=== PATIENT | male | born 1940 | race Caucasian/White ===

== ENCOUNTER → 2017-04-28 | Outpatient (CLI) | payer MEDICARE, BC ==
[~2017-04-28] MED LIST: ASPIRIN E.C. 8181 MG PO; CO Q-1050 MG PO; Co Q 10 PO; HYZAAR 50-12.1 UDTAB PO; LIPITOR 80MG80 MG PO; MASON NATURAL1200 MG PO; OMEGA-31 SGL PO; PRINIVIL20 MG PO; SANCTURA20 MG PO; SPIRIVA RE2.5 MCG/Ac IH; STOOL SOFTENER100 M2 PO; TENORMIN100 MG PO; VITAMIN B-1000 MCG/T PO; VYTORIN 10 MG-81 TAB PO; [UNRECOGNIZED DRUG - REMARK] PO
== END ==
LOC: COL.RAD 07:38
DX: D35.01 Benign neoplasm of right adrenal gland (principal); I71.4 Abdominal aortic aneurysm, without rupture; N28.1 Cyst of kidney, acquired; Z90.49 Acquired absence of other specified parts of digestive tract
CPT/HCPCS: Q9967

== ENCOUNTER → 2018-06-01 | Outpatient (CLI) | payer MEDICARE, BC ==
[~2018-06-01] MED LIST changes: +COZAAR 50MG50 MG/TAB PO; +COZAAR100 MG PO; +HCTZ 25MG TAB25 MG PO; +LOPRESSOR100 MG PO; +MAG-OX 400400 MG/TAB PO; +OMNICEF 300MG300 MG PO; +PREDNISONE20 MG PO; +PROAIR HFA0.09 MG/AC IH
== END ==
LOC: COL.RAD 08:03
DX: I71.4 Abdominal aortic aneurysm, without rupture (principal); Z87.891 Personal history of nicotine dependence

== ENCOUNTER → 2018-10-07 | Outpatient (CLI) | payer MEDICARE, BC | LOC: COL.RAD 07:02 | DX: E27.8 Other specified disorders of adrenal gland (principal); R04.2 Hemoptysis; R91.8 Other nonspecific abnormal finding of lung field; R59.0 Localized enlarged lymph nodes | CPT/HCPCS: Q9967 ==

== ENCOUNTER 2018-10-18 07:29 | Day surgery (SDC) | payer MEDICARE, BC ==
[~2018-10-18] VITALS: Ht 175.3 cm; Wt 79.5 kg
[~2018-10-18 07:29] MED LIST changes: +COENZYME Q-10100 M1 PO; -Co Q 10 PO; +LAXATIVE MAXIMU25 MG PO; -[UNRECOGNIZED DRUG - REMARK] PO
[2018-10-18] MEDS ORDERED: MUCINEX1200 MG PO (08:15)
[2018-10-18 08:24] VITALS: BP 127/50; PULSE 60; TEMP 97.1
[2018-10-18 10:05] VITALS: BP 108/50; PULSE 58; TEMP 97.8
--- NOTE | 2018-10-18 10:05 | NUR ---
TO RM 1 PER CART FROM ENDOSCOPY. ALERT ORIENTED X3, TALKING WITH STAFF AND . OCCASIONAL COUGH WITH PINK SPUTUM.
[2018-10-18 10:20] VITALS: BP 93/53; PULSE 56
--- NOTE | 2018-10-18 10:20 | NUR ---
RESPIRATIONS EVEN AND NONLABORED. RECEIVED PEPSI AND MCKINLEY. PUDDING. SITTING UP TALKING WITH AND WATCHING TV.
[2018-10-18 10:34] VITALS: BP 100/49; PULSE 55
--- NOTE | 2018-10-18 10:34 | NUR ---
CONTINUES TO HAVE OCCASIONAL COUGH. ATE 100% AND TOLERATED WELL.
[2018-10-18 10:50] VITALS: BP 108/48; PULSE 54
--- NOTE | 2018-10-18 10:50 | NUR ---
RECEIVED DISCHARGE INSTRUCTIONS AND VERBALIZED UNDERSTANDING. DISCONINTUED IV AND INT- CATHETER INTACT COVERED WITH COTTON BALL AND COBAN
--- NOTE | 2018-10-18 11:11 | NUR ---
DISCHARGED PER WC BY NURSING STAFF TO PRIVATE CAR IN CARE OF
== END 2018-10-18 11:12 | disposition home or self-care (01) ==
LOC: SDCO 07:29
DX: C34.11 Malignant neoplasm of upper lobe, right bronchus or lung (principal); I25.10 Atherosclerotic heart disease of native coronary artery without angina pectoris; I10 Essential (primary) hypertension; J44.9 Chronic obstructive pulmonary disease, unspecified; M19.90 Unspecified osteoarthritis, unspecified site; N17.9 Acute kidney failure, unspecified; D64.9 Anemia, unspecified; Z87.891 Personal history of nicotine dependence; Z90.49 Acquired absence of other specified parts of digestive tract; Z79.82 Long term (current) use of aspirin; Z85.46 Personal history of malignant neoplasm of prostate; Z90.79 Acquired absence of other genital organ(s)
CPT/HCPCS: J2704; J7120

== ENCOUNTER → 2018-10-20 | Outpatient (CLI) | payer MEDICARE, BC ==
[~2018-10-20] MED LIST changes: +MUCINEX1200 MG PO
== END ==
LOC: COL.RAD 07:57
DX: I67.82 Cerebral ischemia (principal); R91.8 Other nonspecific abnormal finding of lung field
CPT/HCPCS: J2704

== ENCOUNTER 2018-12-14 11:21 | Day surgery (SDC) | payer MEDICARE, BC ==
[~2018-12-14] VITALS: Ht 175.3 cm; Wt 76.3 kg
[2018-12-14 12:03] VITALS: BP 108/64; PULSE 72; TEMP 97.5
[2018-12-14] MEDS ORDERED: TOPROL XL100 MG PO (12:26)
[2018-12-14] MEDS ORDERED: COZAAR 50MG50 MG/TAB PO (12:26)
[2018-12-14] MEDS ORDERED: HCTZ 25MG TAB25 MG PO (12:27)
[2018-12-14] MEDS ORDERED: LIPITOR 80MG80 MG PO (12:27)
[2018-12-14] MEDS ORDERED: MAG-OX 400400 MG/TAB PO (12:28)
[2018-12-14] MEDS ORDERED: KLOR-CON M2020 MEQ PO (12:29)
[2018-12-14] MEDS ORDERED: VITAMIN B COMPL1 SGL PO (12:29)
[2018-12-14] MEDS ORDERED: ASPIRIN 81M81 MG/TA2 PO (12:29)
[2018-12-14] MEDS ORDERED: THE MEDICINE S200 M2 PO (12:30)
[2018-12-14] MEDS ORDERED: MUCINEX 60600 MG/TA1 PO (12:31)
[2018-12-14] MEDS ORDERED: STOOL SOFTENER100 M2 PO (12:31)
[2018-12-14] MEDS ORDERED: LAXATIVE MAXIMU25 MG PO (12:31)
[2018-12-14] MEDS ORDERED: IRON TABLETS325 MG PO (12:32)
[2018-12-14] MEDS ORDERED: STIOLTO RESPIMAT4 GM IH (12:32)
[2018-12-14] MEDS ORDERED: PRILOSEC 20MG20 MG PO (12:33)
[2018-12-14 15:28] VITALS: BP 100/57; PULSE 69
[2018-12-14] MEDS ORDERED: NORCO 325 MG-51 TAB PO (15:28)
--- NOTE | 2018-12-14 15:28 | NUR ---
The patient arrived back to [facility] from the operating room at this time. The patient appears drowsy but arouses easily to his name. The patient's post operative vital signs were started at this time. The patient's is at his bedside at this time. The patient has a gauze dressing to his left chest and a bandaid to his left neck that appear without redness or edema. The patient requests to try some pepsi at this time. Call light is within reach. Will continue to monitor the patient.
[2018-12-14 15:43] VITALS: BP 97/61; PULSE 68
--- NOTE | 2018-12-14 15:43 | NUR ---
The patient appears to be tolerating the pepsi well and denies wanting anything further to eat or drink at this time. The patient's remains at his bedside at this time. Will continue to monitor the patient.
[2018-12-14 15:58] VITALS: BP 111/55; PULSE 67
--- NOTE | 2018-12-14 15:58 | NUR ---
The patient agrees to try some chocolate ice cream at this time. The patient's went to grab a sandwhich at this time. Call light is within reach. Will continue to monitor the patient.
[2018-12-14 16:14] VITALS: BP 120/56; PULSE 71
--- NOTE | 2018-12-14 16:14 | NUR ---
Discharge instructions were reviewed with the patient and his at this time. They both verbalized understanding and have no questions for the nurse at this time. The patient's IV to his left forearm was removed and a pressure dressing was applied to the site. The nurse instructed the patient to get dressed and notify the staff when he is ready to be escorted out.
--- NOTE | 2018-12-14 16:20 | NUR ---
The patient was escorted out via wheelchair to a private vehicle by MAYTE Freeman. The patient's belongings and discharge paperwork were sent with him. The patient's is present to drive him home.
== END 2018-12-14 16:20 | disposition home or self-care (01) ==
LOC: SDCO 11:21
DX: C34.11 Malignant neoplasm of upper lobe, right bronchus or lung (principal); Z79.82 Long term (current) use of aspirin; J43.9 Emphysema, unspecified; Z85.46 Personal history of malignant neoplasm of prostate; I25.10 Atherosclerotic heart disease of native coronary artery without angina pectoris; E78.5 Hyperlipidemia, unspecified; M19.90 Unspecified osteoarthritis, unspecified site; I10 Essential (primary) hypertension; I73.00 Raynaud's syndrome without gangrene; Z90.49 Acquired absence of other specified parts of digestive tract; Z98.61 Coronary angioplasty status; Z87.891 Personal history of nicotine dependence; Z82.3 Family history of stroke
CPT/HCPCS: C1788; J0690; J1644; J2405; J2704; J3010; J7030

== ENCOUNTER → 2019-06-20 | Outpatient (CLI) | payer MEDICARE, BC ==
[~2019-06-20] MED LIST changes: +ASPIRIN 81M81 MG/TA2 PO; +IRON TABLETS325 MG PO; +KLOR-CON M2020 MEQ PO; +MUCINEX 60600 MG/TA1 PO; +NORCO 325 MG-51 TAB PO; +PRILOSEC 20MG20 MG PO; +STIOLTO RESPIMAT4 GM IH; +THE MEDICINE S200 M2 PO; +TOPROL XL100 MG PO; +VITAMIN B COMPL1 SGL PO
== END ==
LOC: COL.RAD 09:30
DX: I71.4 Abdominal aortic aneurysm, without rupture (principal)

== ENCOUNTER → 2019-09-12 | Outpatient (CLI) | payer MEDICARE, BC | LOC: COL.VAS 09:30 | DX: J44.9 Chronic obstructive pulmonary disease, unspecified (principal); I35.1 Nonrheumatic aortic (valve) insufficiency ==

== ENCOUNTER → 2019-09-22 | Outpatient (CLI) | payer MEDICARE, BC | LOC: COL.VAS 08:16 | DX: R22.43 Localized swelling, mass and lump, lower limb, bilateral (principal); C34.11 Malignant neoplasm of upper lobe, right bronchus or lung; M79.89 Other specified soft tissue disorders ==

== ENCOUNTER → 2021-12-26 | Outpatient (CLI) | payer MEDICARE, BC | LOC: COL.VAS 13:27 | DX: I08.3 Combined rheumatic disorders of mitral, aortic and tricuspid valves (principal) ==

== ENCOUNTER → 2022-03-12 | Outpatient (CLI) | payer MEDICARE, BC | LOC: COL.VAS 12:15 | DX: I70.213 Atherosclerosis of native arteries of extremities with intermittent claudication, bilateral legs (principal) ==

== ENCOUNTER → 2022-03-28 | Day surgery (SDC) | payer MEDICARE, BC ==
[~2022-03-28] VITALS: Ht 175.3 cm; Wt 87.3 kg
[~2022-03-28] MED LIST changes: +CLARITIN 1010 MG/TAB PO; +NATURAL POTASS595 MG PO; +NATURAL SENNA8.6 MG PO; +TOPROL XL 25MG25 MG PO; +[UNRECOGNIZED DRUG - OTHER]
[2022-03-28 06:21] VITALS: BP 147/57; PULSE 65; TEMP 98.1
[2022-03-28 08:15] VITALS: BP 127/47; PULSE 64; TEMP 97.6
[2022-03-28 08:30] VITALS: BP 125/54; PULSE 69
[2022-03-28 08:45] VITALS: BP 124/49; PULSE 62
--- NOTE | 2022-03-28 09:03 | NUR ---
0813 Pt returns from Endo procedure to [facility] via cart and this RN assist. Pt's present in room. Pt alert and oriented and wanting something to drink as soon as possible. Call light within reach. Monitors on and alarms set. Pt denies pain or nausea. Pepsi brought for patient. 0820 Pt taking drink well. Pt has no complaints and is wanting to discharge. 0855 Discharge instructions given to pt and pt's . All questions answered to their satisfaction. 0903 Pt transferred out of hospital via wheelchair and this RN assist to private vehicle driven by pt's .
[2022-03-28 13:51] VITALS: BP 98/89; PULSE 65
== END ==
LOC: SDCO 05:45
DX: J18.8 Other pneumonia, unspecified organism (principal); Z85.118 Personal history of other malignant neoplasm of bronchus and lung; Z87.891 Personal history of nicotine dependence; J44.9 Chronic obstructive pulmonary disease, unspecified; Z99.81 Dependence on supplemental oxygen
CPT/HCPCS: J0330; J0461; J2370; J2704; J7120

== ENCOUNTER 2024-01-12 18:41 | Inpatient (IN) | payer MEDICARE, BC ==
[~2024-01-12] VITALS: Ht 175.3 cm; Wt 87.3 kg
[~2024-01-12 18:41] MED LIST changes: +BREZTRI AEROS10.7 GM IH; -TOPROL XL 25MG25 MG PO; +TOPROL XL 50MG50 MG PO; -[UNRECOGNIZED DRUG - OTHER]
[2024-01-12] MEDS ORDERED: Ondansetron 4 MG/2 ML VIAL IV ONE (19:00)
[2024-01-12] MEDS ORDERED: NS 1,000 ML IV SCH ×2 (19:08→22:15)
[2024-01-12] MEDS ORDERED: Morphine 4 MG/ML VIAL IV ONE (19:15)
[2024-01-12] MEDS ORDERED: Iohexol 300 - 100 ML VIAL IV ONE (19:20)
[2024-01-12] MEDS ORDERED: NS 50 ML IV SCH (19:20)
[2024-01-12] MEDS ORDERED: HYDROmorphone 0.5 MG/0.5 ML SYRINGE IV PRN ×2 (20:00→21:45)
[2024-01-12] MEDS ORDERED: LR 1,000 ML IV ONE (20:15)
[2024-01-12] MEDS ORDERED: Albuterol/Ipratropium 3 MG-0.5 MG/3 ML Neb Soln IH PRN (21:30)
[2024-01-12] MEDS ORDERED: Ondansetron 4 MG/2 ML VIAL IV PRN (21:30)
[2024-01-12] MEDS ORDERED: hydrALAZINE 20 MG/ML 1 ML VIAL IV PRN (21:45)
--- NOTE | 2024-01-12 21:46 | NUR ---
TELEPHONE REPORT RECIEVED FROM CASSIA HU IN THE ER AT THIS TIME.
[2024-01-12] MEDS ORDERED: Meropenem 500 MG in Water For Injection,Sterile 10 ML IV ONE (22:00)
--- NOTE | 2024-01-12 22:05 | NUR ---
MALE PATIENT ARRIVED TO ROOM #310 VIA STRETCHER FROM ER. PATIENT TRANSFERED OVER TO BED BY MOVING HIMSELF ONTO ROOM BED. LR INFUSING INTO LEFT AC WITH NO COMPLICATIONS NOTED. INTIAL INTERVIEW AND ASSESSMENT COMPLETED AT THIS TIME. PATIENT TOLERATED WELL. PATIENT ON 2 LITERS OF OXYGEN VIA NC. O2 SAT 97% ON OXYGEN. VITAL SIGNS TAKEN AND STABLE. PATIENT STATES PAIN LEVEL IS 9 ON SCALE OF 0 TO 10. IV DILAUDID GIVEN PER MD ORDER. MERREM ADMINISTERED. ROBLES NON-SKID SOCKS PLACED ON. URINAL GIVEN. PATIENT DENIES ANY NEEDS AT THIS TIME. BED IN LOW POSITION WITH WHEELS LOCKED WITH RAILS UP X3 AND CALL LIGHT WITHIN REACH.
[2024-01-12 22:15] VITALS: BP 162/78; PULSE 80; TEMP 98.8
[2024-01-12] MEDS ORDERED: Meropenem 1 G in Water For Injection,Sterile 20 ML IV SCH (22:30)
[2024-01-13] VITALS (14 sets, daily range): BP systolic 127–183; BP diastolic 54–78; PULSE 70–86; TEMP 97.4–100.2
[2024-01-13] MEDS ORDERED: Meropenem 500 MG in Water For Injection,Sterile 10 ML IV SCH (06:00)
[2024-01-13] MEDS ORDERED: Budesonide Neb Susp 0.5 MG/2 ML AMP IH SCH (07:00)
--- NOTE | 2024-01-13 08:02 | NUR ---
PT RESTING IN BED RATING PAIN 12/10 IN LOWER ABDOMEN. PAIN MEDICATION PROVIDED PER EMAR. PT EXPRESSING CONSERN FOR URINE RETENTION, URINAL PROVIDED, WILL BLADDER SCAN. PT STATES HE WEARS O2 DURING THE NIGHT ONLY, PT PUT TO RA, O2 SAT 95%. PT A/O X4 AND REMAINS NPO WITH SIPS AND CHIPS FOR FEAR OF INCREASED PAIN. COCCYX RED BUT BLANCHABLE. WILL CONTINUE TO MONITOR.
--- NOTE | 2024-01-13 08:40 | NUR ---
NILA DALE CALLED AND VERBAL ORDERS TO PLACE SEPULVEDA CATHETER. THIS NURSE AND PROPERTY MANAGEMENT INTERN AT BEDSIDE. UIRNE FLOWING FORM CATHETER BUT BALLOON UNABLE TO INFLATE WITHOUT CAUSING PT PAIN. PLACEMENT UNSUCCESSFUL BUT BLADDER EMPTIED AND PT STATES PAIN RELIEF. NILA DALE NOTIFIED AND VERBAL ORDERS TO BLADDER SCAN PRN FOR URINE RETENTION. WILL CONTINUE TO MONITOR.
[2024-01-13] MEDS ORDERED: amLODIPine 5 MG TAB PO SCH (09:00)
[2024-01-13] MEDS ORDERED: Heparin 5,000 UNITS/ML 1 ML VIAL SQ SCH (09:00)
[2024-01-13] MEDS ORDERED: Losartan 50 MG TAB PO SCH (09:00)
[2024-01-13] MEDS ORDERED: Budesonide/Glycopyrrolate/Formoterol **** subs to Budesonide + Umeclid/Vilant IH SCH (09:00)
[2024-01-13] MEDS ORDERED: Olmesartan 20 MG **** subs to Losartan 50 MG PO SCH (09:00)
[2024-01-13] MEDS ORDERED: Umeclidinium/Vilanterol 62.5-25 MCG INHALATION/INHALER IH SCH (09:00)
[2024-01-13] MEDS ORDERED: Pantoprazole 40 MG in NS 10 ML IV SCH (09:00)
[2024-01-13] MEDS ORDERED: ZYRTEC 10MG10 MG PO (10:40)
[2024-01-13] MEDS ORDERED: PROAIR HFA0.09 MG/AC IH (10:41)
[2024-01-13] MEDS ORDERED: NORVASC2.5 MG PO (10:41)
[2024-01-13] MEDS ORDERED: BENICAR HCT 12.1 TAB PO (10:50)
[2024-01-13] MEDS ORDERED: oxyCODONE 5 MG TAB PO PRN (11:15)
--- NOTE | 2024-01-13 15:38 | NUR ---
second worker met with patient to discuss discharge planning. Patient currently lives in [place] with his Luz, P# [phone]. PCP is Dr. Erwin, pharmacy is [facility]. Insurance is Medicare A and B, BCBS. No issues affording medications. DPOA-HC is Luz sunil Orr. DME is oxygen (concentrator and portable concentrator) through [facility]. Patient reports to be independent with ADLS. Patient reports he is able to transport himself to and from appointments. Patient would like to return home at time of discharge. SW discussed home health services, patient does not currently have these services but if it is recommended by the physician and physical therapists he would be open to those services. Discharge plan: Home
[2024-01-13] MEDS ORDERED: Acetaminophen 325 MG TAB PO PRN (16:15)
[2024-01-13] MEDS ORDERED: Lidocaine 2% (20 MG/ML) 20 ML UROJET UR ONE (16:30)
--- NOTE | 2024-01-13 16:30 | NUR ---
PT REPORT DICOMFORT IN BLADDER AND INABILITY TO URINATE. BLADDER SCAN INCONCLUSIVE AND TEMP 100.2. NILA DALE CALLED AND ORDERS PROVIDED. CONSULT CALLED TO DR. CORTEZ. DR AT BEDSIDE AND 14 SAMI SEPULVEDA CATHETER PLACED. PT REPORT PAIN RELIEF, PRN PAIN MEDICATION PROVIDED, AND PT TOLERATING ICE CHIPS. NO NEEDS AT THIS TIME, WILL CONTINUE TO MONITOR.
--- NOTE | 2024-01-13 19:16 | NUR ---
Bedside report received from MAYTE Dennison. Pt resting in bed watching TV with no complaints. Call light within reach.
--- NOTE | 2024-01-13 20:31 | NUR ---
Shift assessment completed. Pt A&O x4. VSS. Pt has complaints stating, "I feel I need to urinate". This nurse provided education about richards catheter that is in place and assured patient that yellow urine was draining into catheter bag. Pt denies pain at this time rating, 0/10. NS infusing into LAC with no complications. Pt tolerating small sips of water with no complaints. Pt has no request at this time. Call light within reach.
--- NOTE | 2024-01-13 21:43 | NUR ---
Pt has complaints of pain in ABD rating 9/10. PRN roxicodone administered as ordered. Pt has no other request at this time. Call light within reach.
[2024-01-14] VITALS (11 sets, daily range): BP systolic 116–152; BP diastolic 62–81; PULSE 71–88; TEMP 97.6–99.9
--- NOTE | 2024-01-14 07:00 | NUR ---
PATIENT AWAKE AND ALERT,SITTING UP IN BED. PATIENT REQUESTING THIS RN ASK THE MD ON ROUNDS IF HE CAN HAVE A GI CONSULT. PATIENT STATED HIS LAST BM WAS THURSDAY, AND HIS NORMAL IS TO GO EVERY 3-4 DAYS., PER PATIENT AT HOME HE USUALLY TAKES 2 LAXATIVES AND 3 STOOL SOFTENERS THE DAY HE "FEELS READY" TO HAVE A BM. PATIENT ABD NOTED TO BE VERY DISTENTED, SOFT, NOT FIRM. PATIENT WITH COMPLAINTS OF TOELRABLE PAIN, THAT SHOOTS UP THE SIDES AND ACROSS THE TOP OF HIS ABDOMEN. THIS RN WILL PASS ALONG TO MD IN ROUNDS. PATIENT CALL LIGHT WITHIN REACH.
--- NOTE | 2024-01-14 10:20 | NUR ---
MD MADE AWARE OF PATIENT CRITICAL WBC OF >22
[2024-01-14] MEDS ORDERED: Polyethylene Glycol 3350 17 GM PDS PO SCH (12:17)
[2024-01-14] MEDS ORDERED: Docusate Sodium 100 MG CAP PO PRN (12:30)
--- NOTE | 2024-01-14 14:18 | NUR ---
D: Hydrogen Operator stopped by room on rounds. A: Pt was resting and content with family in the room. Pt has no needs right now. Pt and family appreciated the visit. P: Hydrogen Operator informed pt that if he needed anything from the street light repairer helper area to let his nurse know. Hydrogen Operator will follow up as needed.
--- NOTE | 2024-01-14 21:00 | NUR ---
UPON SHIFT ASSESSMENT, ROBLES WAS UP IN BED AND C/O OF 9/10 ABDOMIAL PAIN. BOWEL SOUNDS HYPOACTIVE IN ALL QUADRANTS, ABDOMEN DISTENDED BUT SOFT. ROXICODONE 5MG ADMINISTERED. VS ARE WNL. WBC ELEVATED 22.16-MEREPEM DUE AT 0000 AM. WILL MONITOR TEMP.
--- NOTE | 2024-01-14 22:12 | NUR ---
ASSISSTED PATIENT TO AMBULATE FAUST IN EFFORT TO INCREASE PERISTALSIS TO ADDRESS CONSTIPATION. PATIENT EXHIBITED ANTONIO, HOWEVER, STATED HE "FELT BETTER THAN THIS MORNING." LUNG SOUNDS REMAIN DIMINSHED. VS ARE WNL.
[2024-01-15] VITALS (12 sets, daily range): BP systolic 111–168; BP diastolic 58–72; PULSE 74–89; TEMP 97.5–100.6
--- NOTE | 2024-01-15 05:39 | NUR ---
Patient c/o 10/10 abdominal pain. bowel sounds present, abdomen distended and semi-firm/soft. 0.5mg Dilaudid given.
[2024-01-15] MEDS ORDERED: Magnesium Oxide 400 MG TAB PO SCH (09:00)
[2024-01-15 11:17] LABS: HEMOGLOBIN 10.2 g/dl (13.5-18.0); MEAN CELL VOLUME 86 fl (80.0-100.0); MEAN CORPUSCULAR HEMOGLOBIN 29 pg (27-31); MEAN CORPUSCULAR HGB CONC 34 g/dl (33.0-37.0); MEAN PLATELET VOLUME 8.4 fl (7.4-10.4); PLATELET COUNT 242 K/mm3 (130-400); RED BLOOD COUNT 3.51 M/mm3 (4.20-5.60); REDCELL DISTRIBUTION WIDTH-CV 15.4 % (11.5-14.5)
[2024-01-15 11:25] LABS: HEMATOCRIT 30.1 % (42.0-52.0)
[2024-01-15 12:04] LABS: BAND 2 % (0-10); LYMPHOCYTE 1 % (20.0-51.0); NEUTROPHILS 92 % (42.0-75.2)
[2024-01-15 12:10] LABS: PLATELET ESTIMATE NORMAL (NORMAL)
--- NOTE | 2024-01-15 13:42 | NUR ---
AFTER SPEAKING WITH LAB MANY TIMES, AND BEING TOLD MANY TIMES THAT THEY HAVE NO ORDERS FOR MY PATIENT, I WAS TOLD THEY FOUND THE RESULT FOR THIS PATIENTS CREATINIE, HOWEVER IT WAS THE RESULT FROM YESTERDAY. THEN I WAS TOLD THAT IS WAS RUNNING. EVEN THOUGH THE ORDER WAS SUBMITTED AT THIS 0500. RESULT CALLED AFTER 1300 TO MATERIAL LISTER. WINDOWS SERVER ENGINEER AWARE OF SITUATIONS
[2024-01-15] MEDS ORDERED: Iohexol 300 - 100 ML VIAL IV ONE (15:49)
[2024-01-15] MEDS ORDERED: NS 100 ML IV SCH (15:50)
--- NOTE | 2024-01-15 20:30 | NUR ---
PT A&O X4 LAYING IN BED. PT STATING ABD PAIN IS 10/10 & THAT HIS ABD FEELS TIGHT, GAVE PRN OXYCODONE PER PT REQUEST. PT DENIES PASSING GAS & STATES LAST BM WAS THURSDAY. EDUCATED PT ON USE OF OPIOIDS SLOWING GI. SEPULVEDA TO DD WITH YELLOW OUTPUT. & INT TO RT FOREARM PATENT. PT DENYING OTHER NEEDS. CALL LIGHTS IN REACH
[2024-01-16] VITALS (12 sets, daily range): BP systolic 99–158; BP diastolic 55–67; PULSE 70–95; TEMP 97.7–99.5
--- NOTE | 2024-01-16 01:15 | NUR ---
GAVE PRN ZOFRAN & OXYCODONE PER OCT FOR ABD PAIN 03/12.
[2024-01-16 06:43] LABS: HEMATOCRIT 27.6 % (42.0-52.0); HEMOGLOBIN 9.5 g/dl (13.5-18.0); MEAN CELL VOLUME 85 fl (80.0-100.0); MEAN CORPUSCULAR HEMOGLOBIN 29 pg (27-31); MEAN CORPUSCULAR HGB CONC 34 g/dl (33.0-37.0); MEAN PLATELET VOLUME 8.4 fl (7.4-10.4); PLATELET COUNT 230 K/mm3 (130-400); RED BLOOD COUNT 3.25 M/mm3 (4.20-5.60); REDCELL DISTRIBUTION WIDTH-CV 14.7 % (11.5-14.5)
[2024-01-16 07:35] LABS: BAND 3 % (0-10); EOSINOPHIL 1 % (0-4); LYMPHOCYTE 2 % (20.0-51.0); METAMYELOCYTE 0 % (0-0); NEUTROPHILS 86 % (42.0-75.2); PLATELET ESTIMATE NORMAL (NORMAL)
--- NOTE | 2024-01-16 09:00 | NUR ---
PATIENT AWAKE AND ALERT, SITTIGN UP IN THE RECLINER. PATIENT DENIES ANY NEEDS OR COMPLAINTS AT THIS TIME. CALL LIGHT WTIHIN REACH.
[2024-01-16 09:32] LABS: ALBUMIN 2.2 g/dL (3.4-4.8); BILIRUBIN,TOTAL 0.8 mg/dL (0.2-1.2); CALCIUM 8.3 mg/dL (8.4-10.2); CREATININE, serum 0.95 mg/dL (0.72-1.25); POTASSIUM 3.6 mEq/L (3.5-4.5); TOTAL PROTEIN 5.2 g/dl (6.2-8.1)
--- NOTE | 2024-01-16 14:00 | NUR ---
PATIENT RELUCTANT TO ANY SOLID FOOD OR SNACKS. PER PATIENT FAMILY HE CAN BE "PICKY." PATIENT EDUCATED ON NEED FOR MORE INTAKE AT THIS TIME TO ASSIST HIM TO HAVE A BM, HE HAS HAD NO SOLID INTAKE IN A FEW DAYS. PATEINT DOES NOT SEEM TO ACEPT TEACHING. PATIENT SHAYNE LIGHT WTIHIN REACH.
[2024-01-16] MEDS ORDERED: Lactulose Oral Soln 10 GM/15 ML CUP PO ONE (15:15)
--- NOTE | 2024-01-16 18:00 | NUR ---
DONATO MAYES AND ALERT SITTING UP IN BED. CALL LIGHT WITHIN REACH. PATAIENT DENIES ANY NEEDS AT THIS TIME.
[2024-01-17] VITALS (11 sets, daily range): BP systolic 101–127; BP diastolic 56–70; PULSE 72–94; TEMP 97.6–98.6
--- NOTE | 2024-01-17 05:15 | NUR ---
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 PT COMPLAINED OF A HEADACHE AND STOMACH PAIN. PT GIVEN TYLENOL AND ROXICODONE FOR PAIN. PT FELT THE PAIN MEDICATION WAS EFFECTIVE FOR A TIME. PT DENIED CHEST PAIN, PALPITATIONS, SOB, N,V,D OR DIZZINESS. PT HAD TWO LARGE AND ONE SMALL LOOSE BOWEL MOVEMENTS. FALL PRECAUTIONS IN PLACE. BED ALARM ON. CALL LIGHT WITHIN REACH.
[2024-01-17 06:18] LABS: ALBUMIN 2.5 g/dL (3.4-4.8); BILIRUBIN,TOTAL 0.8 mg/dL (0.2-1.2); CALCIUM 9.1 mg/dL (8.4-10.2); CREATININE, serum 1.19 mg/dL (0.72-1.25); POTASSIUM 3.3 mEq/L (3.5-4.5); TOTAL PROTEIN 6.4 g/dl (6.2-8.1)
[2024-01-17 06:28] LABS: HEMOGLOBIN 10.6 g/dl (13.5-18.0); MEAN CELL VOLUME 85 fl (80.0-100.0); MEAN CORPUSCULAR HEMOGLOBIN 29 pg (27-31); MEAN CORPUSCULAR HGB CONC 34 g/dl (33.0-37.0); MEAN PLATELET VOLUME 8.6 fl (7.4-10.4); PLATELET COUNT 326 K/mm3 (130-400); RED BLOOD COUNT 3.69 M/mm3 (4.20-5.60); REDCELL DISTRIBUTION WIDTH-CV 14.9 % (11.5-14.5)
[2024-01-17 07:24] LABS: HEMATOCRIT 31.3 % (42.0-52.0)
[2024-01-17 07:32] LABS: BAND 7 % (0-10); LYMPHOCYTE 3 % (20.0-51.0); NEUTROPHILS 81 % (42.0-75.2); OVALOCYTES 1+; PLATELET ESTIMATE NORMAL (NORMAL)
--- NOTE | 2024-01-17 10:00 | NUR ---
PATIENT IS AWARE HIS SACRUM IS REDENED, BARRIER CREAM IN USE, PATIENT EDUCATED ON THE IMPORTANCE OF CHANGING POSITON TO PREVENT WOUNDS. PATIENT IS INDEPENDENT AND WILL RETURN HOME. PATIENT SEEMS TO BE UNINTERESTED IN EDUCATION. PATIENT STILL WITH POOR INTAKE. MD AWARE
[2024-01-17] MEDS ORDERED: LR 1,000 ML IV SCH (13:30)
[2024-01-17] MEDS ORDERED: Potassium Bicarbonate/Citrate 20 MEQ Effervescent TAB PO SCH (13:30)
[2024-01-17] MEDS ORDERED: *Potassium Replacement Protocol MC SCH (13:30)
--- NOTE | 2024-01-17 14:00 | NUR ---
PATIENT DID NOT WANT TO BE SHOWERED AT THIS TIME. PATIENT ALSO SAID HE IS NOT UP TO MOVING TO THE RECLINER TODAY. PATIENT AMBUATED INTO HALLWAY AND BACK TO BED WITH A WALKER, WITHOUT DIFFULCTY TODAY. RN PERFORMED CATH CARE. PATIENT DENIES ANY NEEDS AT THIS TIME. CALL [facility] WTIN REACH
--- NOTE | 2024-01-17 16:45 | NUR ---
DONATO STATED HIS ABDMEN HURTS "WORSE NOW" THAT THIS RN STARTED IV FLUIDS ON HIM. MD NOTIFIED AND GAVE THIS RN A VORB TO DC FLUID.
--- NOTE | 2024-01-17 19:22 | NUR ---
PATIENT SITTING UP IN BED WITH TV ON WITH NO FAMILY PRESENT WITH NO ACUTE DISTRESS NOTED. PATIENT ON 2 LITERS OF OXYGEN VIA NC. INT TO RIGHT FOREARM INTACT WITH NO COMPLICATIONS NOTED. PATIENT C/O PAIN AND NAUSEA. PO OXYCODONE AND IV ZOFRAN GIVEN PER PATIENT REQUEST. PATIENT STATES PAIN LEVLE IS 10 ON SCALE OF 0 TO 10. ASSESSMENT COMPLETED. PATIENT TOLERATED WELL. PATIENT DENIES ANY OTHER NEEDS AT THIS TIME. BED IN LOW POSITION WITH WHEELS LOCKED WITH RAILS UP X3 AND CALL LIGHT WITHIN REACH. BED ALARM ON.
--- NOTE | 2024-01-17 19:29 | NUR ---
PATIENT RESTING IN BED WITH TV ON WITH NO FAMILY PRESENT WITH NO ACUTE DISTRESS NOTED. PATIENT ON 2 LITERS OF OXYGEN VIA NC. INT TO RIGHT FOREARM INTACT WITH NO COMPLICATIONS NOTED. BEDSIDE SHIFT REPORT COMPLETED [facility]. PATIENT DENIES ANY NEEDS. BED IN LOW POSITION WITH WHEELS LOCKED WITH RAILS UP X3 AND CALL LIGHT WITHIN REACH. BED ALARM ON.
[2024-01-17] MEDS ORDERED: Meropenem 500 MG in Water For Injection,Sterile 10 ML IV SCH (20:30)
--- NOTE | 2024-01-17 22:10 | NUR ---
PATIENT RESTING IN BED WITH TV ON WITH NO FAMILY PRESENT WITH NO ACUTE DISTRESS NOTED. PATIENT ON 2 LITERS OF OXYGEN VIA NC. INT TO RIGHT FOREARM INTACT WITH NO COMPLICATIONS NOTED. MEDICATION ADMINISTRATION COMPLETED AT THIS TIME. PATIENT TOLERATED WELL. PATIENT REQUESTED ICE AND WATER. BOTH GIVEN IN PITCHER. PATIENT DENIES ANY OTHER NEEDS. SEPULVEDA CATH INTACT, PATENT, AND DRAINING CLEAR YELLOW URINE. BED IN LOW POSITION WITH WHEELS LOCKED WITH RAILS UP X3 AND CALL LIGHT WITHIN REACH. BED ALARM ON.
[2024-01-18] VITALS (12 sets, daily range): BP systolic 101–133; BP diastolic 61–71; PULSE 62–84; TEMP 97.6–98.7
[2024-01-18 06:25] LABS: MEAN CELL VOLUME 84 fl (80.0-100.0); MEAN CORPUSCULAR HGB CONC 34 g/dl (33.0-37.0); MEAN PLATELET VOLUME 8.7 fl (7.4-10.4); PLATELET COUNT 271 K/mm3 (130-400)
[2024-01-18 06:31] LABS: HEMATOCRIT 28.7 % (42.0-52.0); HEMOGLOBIN 9.7 g/dl (13.5-18.0); MEAN CORPUSCULAR HEMOGLOBIN 29 pg (27-31)
[2024-01-18 06:38] LABS: ALBUMIN 2.1 g/dL (3.4-4.8); BILIRUBIN,TOTAL 0.7 mg/dL (0.2-1.2); CALCIUM 8.8 mg/dL (8.4-10.2); CREATININE, serum 1.01 mg/dL (0.72-1.25); POTASSIUM 3.3 mEq/L (3.5-4.5); TOTAL PROTEIN 5.7 g/dl (6.2-8.1)
[2024-01-18 07:07] LABS: BAND 2 % (0-10); LYMPHOCYTE 2 % (20.0-51.0); NEUTROPHILS 84 % (42.0-75.2); PLATELET ESTIMATE NORMAL (NORMAL)
[2024-01-18 07:08] LABS: ANISOCYTOSIS 1+; BURR CELLS 1+; OVALOCYTES 1+
[2024-01-18] MEDS ORDERED: Potassium Bicarbonate/Citrate 20 MEQ Effervescent TAB PO SCH (07:15)
--- NOTE | 2024-01-18 08:00 | NUR ---
PATIENT RESTING IN BED. ALERT AND ORIENTED. SHIFT ASSESSMENT COMPLETE. PATIENT HAS WHEEZES IN BILAT UPPER LOBES ON EXPIRATION. ABDOMEN IS DISTENDED AND FIRM TO TOUCH. PATIENT RATING PAIN 4/10 AT THIS TIME. BOWEL SOUNDS HYPOACTIVE IN ALL QUADRANTS. PATIENT STATES HE IS PASSING MINIMAL FLATUS. DENIES FURTHER NEEDS OR CONCERNS AT THIS TIME. CALL LIGHT WITHIN REACH.
--- NOTE | 2024-01-18 09:22 | NUR ---
Kettle Loader met with patient to follow up on Home Health services. SW provided information about what services can be provided and what is covered by Medicare. Patient is not ready to make a decision at this time, however was willing to accept the Medicare.gov list of HH options for [place].
--- NOTE | 2024-01-18 19:00 | NUR ---
PATIENT RESTING IN BED WATCHING TV WITH NO FAMILY PRESENT WITH NO ACUTE DISTRESS NTOED. PATIENT ON 2 LITERS OF OXYGEN VIA NC. INT TO RIGHT FOREARM INTACT WITH NO COMPLICATIONS NOTED. SEPULVEDA CATH INTACT, PATENT, AND DRAINING CLEAR YELLOW URINE. BEDSIDE SHIFT REPORT COMPLETED WITH LESLIE AT THIS TIME. PATIENT DENIES ANY NEEDS. BED IN LOW POSITION WITH RAILS UP X3 AND CALL LIGHT WITHIN REACH. BED ALARM ON.
--- NOTE | 2024-01-18 20:35 | NUR ---
PATIENT RESTING IN BED WATCHING TV WITH NO FAMILY PRESENT WITH NO ACUTE DISTRESS NOTED. PATIENT ON 2 LITERS OF OXYGEN VIA NC. INT TO RIGHT FOREARM INTACT WITH NO COMPLICATIONS NOTED. SEPULVEDA CATH INTACT, PATENT, AND DRAINING CLEAR YELLOW URINE. ASSESSMENT AND MEDICATION ADMINISTRATION COMPLETED. PATIENT TOLERATED WELL. PATIENT REQUESTED ICE CHIPS AND WAS GIVEN. PATIENT DENIES ANY OTHER NEEDS. BED IN LOW POSITION WITH WHEELS LOCKED WITH RAILS UP X3 AND CALL LIGHT WITHIN REACH. BED ALARM ON.
[2024-01-19] VITALS (12 sets, daily range): BP systolic 107–156; BP diastolic 61–73; PULSE 72–93; TEMP 97.5–100.3
[2024-01-19] MEDS ORDERED: Potassium Bicarbonate/Citrate 20 MEQ Effervescent TAB PO ONE (07:45)
--- NOTE | 2024-01-19 09:00 | NUR ---
PATIENT RESTING IN BED WATCHING TV. ALERT AND ORIENTED. SHIFT ASSESSMENT COMPLETE. ABD DISTENDED AND FIRM. HYPOACTIVE BS X4. PATIENT DENIES PAIN, BUT STATES HE FEELS A LOT OF PRESSURE IN HIS ABD. REMAINS NPO, ONLY TAKING SIPS OF WATER AND EATING ICE CHIPS.
[2024-01-19 09:02] LABS: MEAN CELL VOLUME 86 fl (80.0-100.0); MEAN CORPUSCULAR HGB CONC 33 g/dl (33.0-37.0); MEAN PLATELET VOLUME 8.9 fl (7.4-10.4); PLATELET COUNT 320 K/mm3 (130-400); RED BLOOD COUNT 3.43 M/mm3 (4.20-5.60); REDCELL DISTRIBUTION WIDTH-CV 15.3 % (11.5-14.5)
[2024-01-19 09:04] LABS: HEMATOCRIT 29.4 % (42.0-52.0); HEMOGLOBIN 9.6 g/dl (13.5-18.0); MEAN CORPUSCULAR HEMOGLOBIN 28 pg (27-31)
[2024-01-19 09:16] LABS: BILIRUBIN,TOTAL 0.6 mg/dL (0.2-1.2); CALCIUM 9.5 mg/dL (8.4-10.2); CREATININE, serum 0.92 mg/dL (0.72-1.25); POTASSIUM 3.9 mEq/L (3.5-4.5); TOTAL PROTEIN 5.9 g/dl (6.2-8.1)
[2024-01-19 09:40] LABS: BAND 23 % (0-10); LYMPHOCYTE 6 % (20.0-51.0); METAMYELOCYTE 1 % (0-0); NEUTROPHILS 61 % (42.0-75.2); PLATELET ESTIMATE NORMAL (NORMAL)
--- NOTE | 2024-01-19 09:46 | NUR ---
LAB CALLED FOR CRITICAL LAB VALUE. BG 66 FROM 0500 LABS. THIS NURSE RECHECKED BG LEVELS. NOW AT 80. CHITO JORDAN NOTIFIED. NO NEW ORDERS AT THIS TIME.
[2024-01-19] MEDS ORDERED: Dextrose 50% Water 25 GM/50 ML SYRINGE IV PRN (10:30)
[2024-01-19] MEDS ORDERED: Dextrose (Glucose) 15 GM (4 x 3.75 GM) Chewable TABLET PACK PO PRN (10:30)
[2024-01-19] MEDS ORDERED: Glucagon 1 MG VIAL IM PRN (10:30)
[2024-01-19 10:53] LABS: MAGNESIUM 2.1 mg/dL (1.6-2.6); PHOSPHOROUS 2.1 mg/dL (2.3-4.7)
--- NOTE | 2024-01-19 12:36 | NUR ---
Interior Wirer attended clinical rounds with the team and patient is having a NG tube placed and started on TPN. SW contacted patient's , Luz to check in and discuss home health services. SW advised she left a list in patient's room for review.
--- NOTE | 2024-01-19 14:36 | NUR ---
PATIENT NOT GETTING PICC PLACED ANYMORE D/T PATIENT TELLING RN HE HAS A PORT TO LEFT CHEST. CHITO JORDAN NOTIFIED, VICTOR MANUEL APPROVED USING PORT FOR TPN.
--- NOTE | 2024-01-19 14:42 | NUR ---
Order received for PICC line placement. Spoke with the patient prior to insertion attempt and he reported he had a left chest port that he receives cancer treatment through. Spoke with the nurse and she was unaware of the port. She called Dr. Saha and let him know the patient had the port and he gave orders to use the port for the patients TPN rather than placing the PICC line. PICC line cancelled.
--- NOTE | 2024-01-19 15:21 | NUR ---
PT LT CHEST PAC ACCESSED BY SALON SALES CONSULTANT SO THAT PATIENT CAN START TPN THIS AFTERNOON. STERILE PROCEDUCE FOLLOWED. PT TOLERATED ACCESS WELL.
[2024-01-19] MEDS ORDERED: Insulin Lispro (HumaLOG) SQ SCH (18:00)
--- NOTE | 2024-01-19 21:10 | NUR ---
PATIENT RESTING IN BED SITTING UP WITH TV ON WITH NO FAMILY PRESENT WITH NO ACUTE DISTRESS NOTED. PATIENT ON 2 LITERS OF OXYGEN VIA NC. NG TUBE NOTED TO LEFT NARES INTACT, PATENT, AND DRAINING CLEARISH BROWN/REDISH SPOTS. INT TO RIGHT FOREARM INTACT WITH NO COMPLICATIONS NOTED. TPN INFUSING INTO LEFT UPPER CHEST PORT WITH NO COMPLICATIONS NOTED. SEPULVEDA CATH INTACT, PATENT, AND DRAINING YELLOW URINE WITH SEDIMENT. ASSESSMENT AND MEDICATION ADMINISTRATION COMPLETED AT THIS TIME. PATIENT TOLERATED WELL. PATIENT DENIES ANY NEEDS AT THIS TIME. BED IN LOW POSITION WITH WHEELS LOCKED WITH RAILS UP X3 AND CALL LIGHT WITHIN REACH. BED ALARM ON.
[2024-01-20] VITALS (12 sets, daily range): BP systolic 114–166; BP diastolic 64–80; PULSE 75–86; TEMP 97.5–101
[2024-01-20 06:52] LABS: MEAN CELL VOLUME 86 fl (80.0-100.0); MEAN CORPUSCULAR HGB CONC 34 g/dl (33.0-37.0); MEAN PLATELET VOLUME 8.7 fl (7.4-10.4); PLATELET COUNT 319 K/mm3 (130-400); RED BLOOD COUNT 3.16 M/mm3 (4.20-5.60)
[2024-01-20 06:54] LABS: HEMATOCRIT 27.1 % (42.0-52.0); HEMOGLOBIN 9.1 g/dl (13.5-18.0); MEAN CORPUSCULAR HEMOGLOBIN 29 pg (27-31)
[2024-01-20 07:28] LABS: CALCIUM 9.3 mg/dL (8.4-10.2); CREATININE, serum 0.79 mg/dL (0.72-1.25); POTASSIUM 3.8 mEq/L (3.5-4.5)
[2024-01-20 07:38] LABS: MAGNESIUM 2.1 mg/dL (1.6-2.6); PHOSPHOROUS 2.2 mg/dL (2.3-4.7)
[2024-01-20 08:17] LABS: BAND 12 % (0-10); LYMPHOCYTE 1 % (20.0-51.0); METAMYELOCYTE 1 % (0-0); MYELOCYTE 1 % (0-0); NEUTROPHILS 78 % (42.0-75.2)
[2024-01-20] MEDS ORDERED: Potassium Chloride 100 ML IV SCH ×2 (08:30→14:00)
--- NOTE | 2024-01-20 09:27 | NUR ---
Spoke with CHITO Reddy regarding patient's NPO status and scheduled po medications- no new orders at this time- will round on patient next.
[2024-01-20 09:37] LABS: ALBUMIN 1.8 g/dL (3.4-4.8); BILIRUBIN,TOTAL 0.5 mg/dL (0.2-1.2); CALCIUM 9.3 mg/dL (8.4-10.2); CREATININE, serum 0.81 mg/dL (0.72-1.25); POTASSIUM 3.9 mEq/L (3.5-4.5); TOTAL PROTEIN 5.4 g/dl (6.2-8.1)
[2024-01-20] MEDS ORDERED: Morphine 4 MG/ML VIAL IV PRN (09:45)
--- NOTE | 2024-01-20 11:30 | NUR ---
Pt to radiology department at [facility], via cart, per EMS.
--- NOTE | 2024-01-20 12:20 | NUR ---
Pt returns from CT scan, via EMS, and transferred from cart to bed. Waffle mattress placed on bed. Pt's coccyx red but blanchable. Repositioning schedule in place. NG to LIS. O2 to 0.5L/NC. Fall precautions in place.
[2024-01-20] MEDS ORDERED: SODIUM CHL IV SCH (16:00)
[2024-01-20] MEDS ORDERED: MAGNESIUM SULFATE IV SCH (16:00)
[2024-01-20] MEDS ORDERED: [UNRECOGNIZED DRUG - OTHER] IV SCH (16:00)
--- NOTE | 2024-01-20 19:26 | NUR ---
Patient sat up in chair for approximately 1 hour this afternoon. Morphine administered prn abdominal pain this afternoon- bringing pain rating down from a 9/10 to a 5/10. NG LIS with brown drainage. Has remained NPO with ice chips only. O2 increased to 1L/NC by RT with SpO2 maintaining >90%. INR required for 1200 or 1800. PAC left chest with TPN infusing as ordered without any s/s complications. IV to RFA without s/s IV related complications. Received K+ replacement and Sodium Phos. Afebrile this shift. Dr. Celeste in this evening for consult.
--- NOTE | 2024-01-20 21:30 | NUR ---
PATIENT IS RESTING IN BED WATCHING TV. HE IS REPORTING SOME DISCOMFORT IN HIS ABDOMEN WHICH HE RATES 8.5/10 WELL SOME NAUSEA. STATES HE HAS NOT PASSED ANY GAS, HOWEVER, ON ASSESSMENT BOWEL SOUNDS ARE AUDIBLE IN ALL QUADRANTS. CALL LIGHT IS WITHIN REACH. BED LOCKED AND IN LOW POSITION. NG TUBE CURRENTLY SET TO LOW INTERMITTANT SUCTION. HE IS ALERT AND ORIENTED AT THIS TIME AND STABLE ON 1L VIA NASAL CANNULA.
[2024-01-21] VITALS (10 sets, daily range): BP systolic 158–182; BP diastolic 68–74; PULSE 78–93; TEMP 98.1–99.2
--- NOTE | 2024-01-21 06:00 | NUR ---
RN WALKED BY PATIENT'S ROOM AND FOUND HIM MOVING AROUND IN HIS BLANKETS AND THROWING UNDERPAD ONTO THE FLOOR. WHEN ASKED WHAT WAS WRONG PATIENT REPORT SEVERE PAIN IN HIS BACK WHICH HE STATED FELT LIKE MUSCLE CRAMPS. ASSISTED PATIENT IN REPOSITIONING AND ADJUSTING BLANKETS. OFFERED PATIENT PAIN MEDICATION WHICH HE DID ACCEPT. 2MG IV MORPHINE GIVEN.
[2024-01-21 07:04] LABS: PHOSPHOROUS 2.4 mg/dL (2.3-4.7)
[2024-01-21 09:28] LABS: ALBUMIN 1.8 g/dL (3.4-4.8); BILIRUBIN,TOTAL 0.4 mg/dL (0.2-1.2); CALCIUM 9.5 mg/dL (8.4-10.2); CREATININE, serum 0.75 mg/dL (0.72-1.25); POTASSIUM 4.4 mEq/L (3.5-4.5); TOTAL PROTEIN 5.5 g/dl (6.2-8.1)
--- NOTE | 2024-01-21 14:56 | NUR ---
Residue Furnace Operator spoke with Hospitalist team who recommend a referral to [facility]. SW contacted Mikhail, clinical liason and faxed referral for review.
--- NOTE | 2024-01-21 21:00 | NUR ---
Patietn assessed around 2044. Alert and oriented, and able to make needs known. Complaining of level 7 pain to abdomen after Morphine was given. PICC to JOSE ELIAS, TPN running per orders. Port to left chest. NG tube at 60 cm surjit, set to LIS. Clear brown contents. On oxygen at 2 L/min via NC. Denies SOB and dyspnea. LS CTA in upper lobes, diminshed in lower. HRR. BS hypoactive. Abdomen firm and distended. Indwelling richards catheter patent, draining clear yellow urine. Voices no questions, needs, or concerns at this time. In bed with call light within reach. High fall risk precautions in place. Bed alarm on.
[2024-01-22] VITALS (12 sets, daily range): BP systolic 143–168; BP diastolic 68–76; PULSE 81–92; TEMP 97.5–98.8
--- NOTE | 2024-01-22 06:45 | NUR ---
Patient has not requested any further pain medication this shift. NG tube continues to have light brown draining, but is takings PO sips of water and ice chips. Voices no questions, needs, or concerns at this time. In bed with call light within reach. High fall risk precautions in place. Bed alarm on.
[2024-01-22 07:17] LABS: ALBUMIN 1.9 g/dL (3.4-4.8); BILIRUBIN,TOTAL 0.5 mg/dL (0.2-1.2); CALCIUM 8.8 mg/dL (8.4-10.2); CREATININE, serum 0.69 mg/dL (0.72-1.25); POTASSIUM 4.1 mEq/L (3.5-4.5); TOTAL PROTEIN 5.6 g/dl (6.2-8.1)
[2024-01-22 07:35] LABS: PHOSPHOROUS 2.9 mg/dL (2.3-4.7)
[2024-01-22] MEDS ORDERED: hydrALAZINE 20 MG/ML 1 ML VIAL IV SCH (09:45)
--- NOTE | 2024-01-22 14:57 | NUR ---
Outside Sales Professional attended clinical rounds with the team and Hospitalist discussed recommendation for [facility] with patient. SW followed up with Mikhail, clinical liason who stated patient met criteria and that he would be at bedside to meet with patient on Thursday. SW followed up with patient and his , Luz at bedside to discuss recommendation. Luz seemed somewhat hesitant but did verbalize understanding. She would like to speak with Mikhail on Thursday. SW updated Hospitalist on the above. Discharge Plan; [facility]
--- NOTE | 2024-01-22 19:12 | NUR ---
NG to LIS with light green drainage- at 60cm surjit. Continues sips and chips. O2 2L/NC. Reports SOA at times. TPN infuses to PICC line as ordered. Waffle mattress on bed and chair- coccyx red but blanchable with no open areas noted. Only repositioned x1 today, refusing repositioning at other times that were offered. Sat up in chair for approximately 1 hour this afternoon. Medicated with Morphine IVP prn pain. Reports abominal pain as high as 9/10 and as low as 6/10. Declined offer for medication this eveing stating he can wait until his next Morphine is due. Abdomen soft but distended. Pt is belching and passing flatus. Peter DD clear yellow urine. Insulin not required at 1200 or 1800.
--- NOTE | 2024-01-22 22:09 | NUR ---
Patient assessed around 2109. Alert and oriented, and able to make needs known. Reports pain to abdomen, given PRN Morphine as requested. PICC to RUE with TPN and Lipids running per orders. Port to left chest. Reports SOB with exertion. Moist cough. LS coarse crackles throughout. On oxygen at 2 L/min via NC. Requested neb treatment and RT notified. HRR. BSAx4. Abdomen distended, but soft. Denies passing any gas. Indwelling richards catheter with cloudy yellow urine. No edema. Voices no further questions, needs, or concerns at this time. In bed with call light within. High fall risk precautions in place. Bed alarm on.
[2024-01-23] VITALS (12 sets, daily range): BP systolic 108–139; BP diastolic 59–68; PULSE 89–100; TEMP 97.9–98.3
--- NOTE | 2024-01-23 06:07 | NUR ---
Patient given PRN Morphine twice this shift as requested for pain. Continues on oxygen at 2 L/min via NC. Continues to deny passing gas. Has had 175 mls of clear, yellow output from NG tube, but is taking sips of water and ice chips. Denies nausea and upset stomach. Continues on TPN per orders. Voices no questions, needs, or concerns at this time. In bed with call light within reach. High fall risk precautions in place. Encouraged to reposition in bed throughout the night, but refusing to turn onto sides to get off of bottom.
[2024-01-23 06:51] LABS: HEMOGLOBIN 10.5 g/dl (13.5-18.0); MEAN CELL VOLUME 87 fl (80.0-100.0); MEAN CORPUSCULAR HEMOGLOBIN 29 pg (27-31); MEAN CORPUSCULAR HGB CONC 33 g/dl (33.0-37.0); PLATELET COUNT 361 K/mm3 (130-400); RED BLOOD COUNT 3.69 M/mm3 (4.20-5.60)
[2024-01-23 07:16] LABS: ALBUMIN 1.9 g/dL (3.4-4.8); BILIRUBIN,TOTAL 0.5 mg/dL (0.2-1.2); CALCIUM 8.8 mg/dL (8.4-10.2); CREATININE, serum 0.76 mg/dL (0.72-1.25); POTASSIUM 4.2 mEq/L (3.5-4.5); TOTAL PROTEIN 5.6 g/dl (6.2-8.1)
[2024-01-23 07:32] LABS: PHOSPHOROUS 3.2 mg/dL (2.3-4.7)
[2024-01-23 08:02] LABS: BAND 2 % (0-10); LYMPHOCYTE 4 % (20.0-51.0); NEUTROPHILS 89 % (42.0-75.2); PLATELET ESTIMATE NORMAL (NORMAL)
--- NOTE | 2024-01-23 09:47 | NUR ---
Assessment complete. A/O x4. X1 assist to chair. O2 2L/NC. NG to LIS- 60cm at insertion to nose. Drainage t[place]/yellowish in color. Sips and chips otherwise NPO. PAC to left chest without s/s IV related complications. PICC line to ABBIE. TPN infusing to PICC line as ordered. Coccyx and scrotum red but blanchable. Waffle mattress on bed and waffle chair cushion on chair. Fall precautions in place. Bathing and oral cares provided. Pt SOA with minimal exertion. Respiratory Therapy notified and at bedside doing breathing treatment. LS coarse but some improvement noted when patient coughs and clears secretions.
--- NOTE | 2024-01-23 12:26 | NUR ---
SW received call from patient's asking for KERRI Grace. Explained that Lesly does not work on weekends and offered to assist with questions. She was asking about getting assistance with [facility]. She further explained that patient has applied for VA medical benefits and received an email regarding an upcoming appointment with [employer] litigation claim representative. This SW explained that hospital financial counselors are not available on the weekend but can follow up on Thursday for assistance. stated she is DPOA for patient. Discharge plan: LT[facility] referred
--- NOTE | 2024-01-23 15:00 | NUR ---
Patient sat up in the chair until physical therapy ambulated him in hallway- then returned to bed. Morphine administered IVP for pain and patient reports pain decreased to 6/10 which he felt was tolerable. Rates pain at this time 0/10. Reports he feels his stomach is grumbling but denies nausea or vomiting. NG residual since clamping is < 5ml. in to visit for a short time this afternoon.
--- NOTE | 2024-01-23 16:11 | NUR ---
Pt resting in bed, watching tv. Rates abdominal pain 0/10. Zofran 4mg administered IVP for c/o nausea. Denies passing flatus.
--- NOTE | 2024-01-23 18:21 | NUR ---
x1 assist to chair, using walker. Denies pain, nausea or needs at this time. Fall precautions in place.
--- NOTE | 2024-01-23 20:00 | NUR ---
UPON SHIFT ASSESSMENT, ROBLES WAS UP IN BEDSIDE RECLINER AND AXO X4. ABDOMEN STILL EXHIBITS EXTREME EXTENSION AND IS FIRM. BOWEL SOUNDS ARE AUDIBLE IN ALL QUADRANTS. NG TUBE IS CLAMPED AND RESIDUAL IS 10 ML GREEN BILE. TPN CURRENTLY RUNNING IN RT UPPER ARM PICC. FINE CRACKLES THAT CLEAR WITH COUGH NOTED IN BILATERAL LOBES. PATIENT DENIES PAIN OR NEEDS AT THIS TIME
[2024-01-24] VITALS (12 sets, daily range): BP systolic 121–163; BP diastolic 60–74; PULSE 87–97; TEMP 97.7–98.7
--- NOTE | 2024-01-24 00:05 | NUR ---
PATIENT C/O 6/10 EPIGASTRIC PAIN. PRN IV MORPHINE ADMINISTERED. ABDOMEN REMAINS DISTENDED AND FIRM, BOWEL SOUNDS PRESENT.
--- NOTE | 2024-01-24 05:00 | NUR ---
12 HR URINE COLLECTION INITIATED. PATIENT RESTING IN BED. STATES NO NEEDS. VS ARE WNL.
--- NOTE | 2024-01-24 10:08 | NUR ---
PATIENT SITTING UP IN BED. ALERT AND ORIENTED. NG TUBE REMOVED BY DR ORTIZ. PATIENT TOLERATED WELL. SHIFT ASSESSMENT COMPLETE. COURSE CRACKLES NOTED THROUGHOUT LUNGS. PATIENT REMAINS ON 2L OF 02 VIA NC. DENIES PAIN OR DISCOMFORT. PATIENT REQUESTS PRN SUPPOSITORY FOR CONSTIPATION. THIS NURSE ADMINISTERED PER ORDERS. ALL NEEDS MET AT THIS TIME. CALL LIGHT WITHIN REACH.
[2024-01-24 10:14] LABS: ALBUMIN 1.9 g/dL (3.4-4.8); BILIRUBIN,TOTAL 0.6 mg/dL (0.2-1.2); CALCIUM 9.3 mg/dL (8.4-10.2); CREATININE, serum 0.84 mg/dL (0.72-1.25); POTASSIUM 4.2 mEq/L (3.5-4.5); TOTAL PROTEIN 5.9 g/dl (6.2-8.1)
--- NOTE | 2024-01-24 17:33 | NUR ---
PATIENT RESTED THIS AFTERNOON. HAD MEDIUM, LOOSE BM. BS AUDIBLE X4 QUADRANTS. DENIES PAIN OR DISCOMFORT. CLEAR LIQUID DIET ORDERED. WILL MONITOR HOW HE TOERATES.
--- NOTE | 2024-01-24 20:30 | NUR ---
Initial shift assessment done- denies pain, denies SOB, O2 AT 2L/NC, taking sips of clear liquids, no nausea, states feels hot tonight-- air turned up in room, TPN at 75.8cc/hr to RUE PICC line.
[2024-01-25] VITALS (10 sets, daily range): BP systolic 123–154; BP diastolic 65–78; PULSE 89–106; TEMP 97.5–98.6
--- NOTE | 2024-01-25 02:00 | NUR ---
Lung sounds very coarse throughout, pt denies SOB but states he feels his breathing is labored,o2 sats 96% on 2L/nc, did have respiratory therapy come and give him treatment- pt states maybe it helped 'a little'. Uzma DON called with pt status, she will come to assess him.
--- NOTE | 2024-01-25 06:30 | NUR ---
Will have chest x-ray this morning and lab work, redoing the 12 hour urine for urea nitrogen{lab states it was never delivered to lab?} started at 0045 and will finish at 1245 today,, Peter on ice. TPN infusing at 75.8cc/hr, o2 at 2L/nc.
--- NOTE | 2024-01-25 06:45 | NUR ---
resting in bed, bedside shift report received from MAYTE Greco
[2024-01-25 07:22] LABS: MEAN CELL VOLUME 86 fl (80.0-100.0); MEAN CORPUSCULAR HEMOGLOBIN 28 pg (27-31); MEAN CORPUSCULAR HGB CONC 32 g/dl (33.0-37.0); MEAN PLATELET VOLUME 8.8 fl (7.4-10.4); PLATELET COUNT 306 K/mm3 (130-400); RED BLOOD COUNT 3.63 M/mm3 (4.20-5.60); REDCELL DISTRIBUTION WIDTH-CV 15.4 % (11.5-14.5)
[2024-01-25 07:23] LABS: HEMATOCRIT 31.1 % (42.0-52.0)
[2024-01-25 07:47] LABS: CALCIUM 9.5 mg/dL (8.4-10.2); CREATININE, serum 0.77 mg/dL (0.72-1.25); MAGNESIUM 2.2 mg/dL (1.6-2.6); PHOSPHOROUS 2.5 mg/dL (2.3-4.7); POTASSIUM 4.3 mEq/L (3.5-4.5)
[2024-01-25 08:22] LABS: LYMPHOCYTE 8 % (20.0-51.0); NEUTROPHILS 87 % (42.0-75.2)
[2024-01-25 08:23] LABS: ANISOCYTOSIS 1+; OVALOCYTES 1+; PLATELET ESTIMATE NORMAL (NORMAL)
--- NOTE | 2024-01-25 08:45 | NUR ---
sitting up in bed watching TV, full assessment completed, see interventions for further info, declines breakfast, only has some sips of wawter and ice chips per his request, lung sounds coarse and he is encouraged to cough which he does and has clear thick sputum, abdomen is very distended but soft and has positive bowel sounds in all 4 quadrants, he states he has some pain with cramping in his abdomen, denies needs
[2024-01-25 09:25] LABS: BILIRUBIN,TOTAL 0.6 mg/dL (0.2-1.2); CALCIUM 8.9 mg/dL (8.4-10.2); CREATININE, serum 0.77 mg/dL (0.72-1.25); POTASSIUM 4.4 mEq/L (3.5-4.5); TOTAL PROTEIN 5.7 g/dl (6.2-8.1)
[2024-01-25] MEDS ORDERED: FLOMAX 0.40.4 MG/CAP PO (10:28)
--- NOTE | 2024-01-25 10:30 | NUR ---
Dr Cassidy in to see patient, am meds given, will plan to go to [facility] later today
--- NOTE | 2024-01-25 10:40 | NUR ---
BP 123/66, HR 97, resting in chair visitramya payton his
--- NOTE | 2024-01-25 14:19 | NUR ---
Winch Driver spoke with Mikhail and also provided updates via fax. Mikhail met with patient and his at bedside, both are agreeable to discharge to [facility]. Hospitalist met with patient and to advise patient can be discharged today. [facility] has bed availability today and can accept. SW contacted [facility] and set transport time for 1430. SW provided transport time to patient and his . KERRI faxed discharge orders to Mikh[facility] and provided report number to RN. Discharge Plan: [facility]
--- NOTE | 2024-01-25 15:07 | NUR ---
report called to MAYTE Merlos at [facility]
--- NOTE | 2024-01-25 15:20 | NUR ---
discharged per EMS
== END 2024-01-25 15:20 | DRG 439 ==
LOC: COL.ER 18:41 → MEDICAL 21:34
PROVIDERS: Internal Medicine; Physician Assistant; ADMIT Hospitalist
PROC: 02HV33Z Insertion of Infusion Device into Superior Vena Cava, Percutaneous Approach (ICD-10-PCS; principal; 2024-01-12)
DX: K85.90 Acute pancreatitis without necrosis or infection, unspecified (principal); J96.10 Chronic respiratory failure, unspecified whether with hypoxia or hypercapnia; E03.9 Hypothyroidism, unspecified; E16.2 Hypoglycemia, unspecified; R33.9 Retention of urine, unspecified; J44.9 Chronic obstructive pulmonary disease, unspecified; I25.10 Atherosclerotic heart disease of native coronary artery without angina pectoris; Z95.5 Presence of coronary angioplasty implant and graft; I10 Essential (primary) hypertension; K59.00 Constipation, unspecified
CPT/HCPCS: A4314; C1751; C9113; J0360; J1170; J1644; J2185; J2270; J2405; J3411; J3475; J3480; J7030; J7050; J7120; J7131; Q9967